=== PATIENT | male | born 1950 | race Caucasian/White ===

== ENCOUNTER 2017-02-09 14:18 | Emergency (ER) | payer OTHER, BC ==
[~2017-02-09] VITALS: Ht 180.3 cm; Wt 89.9 kg
[2017-02-09 14:21] VITALS: TEMP 36.8; Ht 180.3 cm; Wt 89.9 kg
[2017-02-09] MEDS ORDERED: CIPROFLOXACIN 500 MG TAB PO STA (14:37)
[2017-02-09] MEDS ORDERED: DIPHTHERIA/TETANUS/PERTUSSIS 0.5 ML SYR/VIAL IM. ONE (14:45)
[2017-02-09] MEDS ORDERED: CALC500T72 PO (14:55)
[2017-02-09] MEDS ORDERED: MULT-513 PO (14:55)
--- NOTE | 2017-02-09 14:56 | DIAGNOSTIC IMAGING REPORT ---
RIGHT FOOT MIN 3 VIEWS ROUTINE HISTORY: 66 years-old Male Nail x2 puncture wounds plantar midfoot Right COMPARISON: None available TECHNIQUE: 3 views of the right foot FINDINGS: Severe degenerative changes are present within the first MTP joint, most pronounced medially. There is minimal spurring about the plantar calcaneus. There is no acute fracture or dislocation. No radiopaque foreign body is seen along the plantar aspect of the foot. Mild tibiotalar degenerative changes are also noted. IMPRESSION: 1. No acute fracture, dislocation or radiopaque foreign body. 2. Severe degenerative changes of the first MTP joint. The above report was generated using voice recognition software. It may contain grammatical, syntax or spelling errors. Electronically signed by: Loco Hassan M.D. 02/09/2017 2:55 PM Dictated Date/Time: 02/09/2017 2:53 PM
[2017-02-09] MEDS ORDERED: CIPR-255 PO (15:18)
[2017-02-09 15:26] VITALS: BP 133/78; PULSE 65; O2SAT 96
--- NOTE | 2017-02-09 15:51 | EMERGENCY ROOM VISIT NOTE ---
History First contact with patient: 14:33 Chief Complaint: WOUND INFECTION Stated Complaint: PUNCTURE WOUNDS, RIGHT FOOT Nursing Triage Summary: Pt states while working on his daughter's house he stepped on 2 nails. Punctures x 2 to bottom of right foot. Would like tetanus vaccine. History of Present Illness The patient is a 66 year old male who presents to the Emergency Room with complaints of 2 puncture wounds to the bottom of his right foot. The patient reports that he was helping his son-in-law breakdown an outside coal bin. They were boards laying on the ground with the nails protruding from them. The patient lost his balance and stepped on one of the boards with 2 nails in the trading the bottom of his sneaker and into the foot. The patient reports that one of the wounds did bleed extensively, but is now not bleeding. He rates his discomfort a 2 out of 10. The patient presents primarily requesting a tetanus booster as his last booster was in 2007. The patient denies any paresthesias or numbness of the right foot or toes. Review of Systems 10 system review was performed and was negative except for pertinent positives and negatives as indicated in history of present illness Past Medical/Surgical History Medical Problems: (1) Actinic Keratosis (2) Asthma, Unspecified (3) Chronic Hepatitis C W/O Hepatic Coma (4) Melanocytic Nevi Of Trunk Surgical Problems: (1) History of appendectomy Family History FH: heart disease FH: hypertension Social History Smoking Status: Former Smoker Alcohol Use: occasionally Marital Status: Occupation Status: retired Current/Historical Medications Scheduled Calcium Ascorbate (Vitamin C), 500 MG PO DAILY Ciprofloxacin Hcl (Cipro), 500 MG PO BID Multivitamins/Minerals (Mvi With Minerals), 1 TAB PO DAILY Physical Exam Vital Signs Date Time Temp Pulse Resp B/P (MAP) Pulse Ox O2 Delivery O2 Flow Rate FiO2 02/09/17 15:26 65 16 133/78 96 Room Air 02/09/17 14:21 36.8 67 16 135/81 95 Room Air Physical Exam CONSTITUTIONAL: Healthy and well nourished. Alert and oriented X 3 with positive affect. Patient does not appear in any acute distress. HEENT: Normocephalic, atraumatic. Pupils equal, round and reactive. NECK: Full active range of motion without discomfort. MUSCULOSKELETAL: Examination of the right plantar foot shows 2 puncture wounds in the middle portion of the sole. No active bleeding, hematoma formation or obvious cutaneous foreign bodies noted. The patient has no worsening discomfort with subtalar motion. Pedal pulses and capillary refill are intact. INTEGUMENTARY: No rash or other significant dermatologic conditions noted. NEUROLOGIC: Right foot and toes are sensory intact. Medical Decision & Procedures ER Provider Diagnostic Interpretation: My interpretation of right foot x-rays does not show any obvious radiopaque foreign bodies, fractures or dislocations. Severe first MTP osteoarthritis is noted. Radiologist report is as follows: RIGHT FOOT MIN 3 VIEWS ROUTINE HISTORY: 66 years-old Male Nail x2 puncture wounds plantar midfoot Right COMPARISON: None available TECHNIQUE: 3 views of the right foot FINDINGS: Severe degenerative changes are present within the first MTP joint, most pronounced medially. There is minimal spurring about the plantar calcaneus. There is no acute fracture or dislocation. No radiopaque foreign body is seen along the plantar aspect of the foot. Mild tibiotalar degenerative changes are also noted. IMPRESSION: 1. No acute fracture, dislocation or radiopaque foreign body. 2. Severe degenerative changes of the first MTP joint. Medications Administered Medications (Trade) Dose Ordered Sig/Lamar Route Start Time Stop Time Status Last Admin Dose Admin Ciprofloxacin (Cipro Tab) 500 mg NOW STAT PO 02/09/17 14:37 02/09/17 14:39 DC 02/09/17 14:37 500 MG Diphtheria/ Pertussis/Tetanus Vacc (Adacel Inj) 0.5 ml ONCE ONCE IM. 02/09/17 14:45 02/09/17 14:46 DC 02/09/17 14:45 0.5 ML ED Course Patient history and physical exam were performed. Nurse's notes were reviewed. Vital signs were reviewed and normal. The patient refused any analgesics. Adacel was administered IM, along with Cipro 500 mg orally. X-rays of the right foot were normal. Incidental severe osteoarthritis of the first MTP joint is noted. The patient was provided a prescription for Cipro 500 mg twice a day 7 days. He was instructed to watch for any developing infection. Limited weight-bearing until the wound heals. Ibuprofen or Tylenol as needed for additional pain relief. The patient was happy with plan of care, voiced understanding of all discharge instructions, and denied any significant pain upon final exam. The patient was also seen and examined by Dr. Murray, ED attending physician, who agrees with workup and plan of care. Medical Decision Medication Reconcilliation Current Medication List: was personally reviewed by me Blood Pressure Screening Patient's blood pressure: Normal blood pressure Impression Primary Impression: Puncture wound of right foot Additional Impression: Need for tetanus booster Departure Information Prescriptions Ciprofloxacin Hcl (CIPRO) 500 Mg Tab 500 MG PO BID for 7 Days, #14 TAB Prov: Moe Morales PA 02/09/17 Referrals Destin Mark, D.O. (PCP) Patient Instructions My [facility] Problem Qualifiers Primary Impression: Puncture wound of right foot Encounter type: initial encounter Qualified Codes: S91.331A - Puncture wound without foreign body, right foot, initial encounter
--- NOTE | 2017-02-09 17:18 | EMERGENCY ROOM VISIT NOTE ---
ED Visit Note First contact with patient: 14:33 I have personally evaluated this patient examined her and reviewed the pertinent labs and data. I have discussed the case with Octavio Morales, the physician dental assistant teacher and agree with the plan. Please refer to the PA note. This patient comes in as described above. He suffered a puncture wound with 2 nails on his right foot through the right shoe. We have irrigated these wounds. We will cover him with Cipro given the fact that it was a puncture wound through his shoe. He has been updated has tetanus booster. X-rays are unremarkable. He is neurologically and neurovascularly intact. I told the patient's keep a close eye on things. Return if: redness, pus, fever, drainage, any new process concerns. He should follow up with her regular doctor next couple days for recheck.
== END 2017-02-09 15:20 | disposition home or self-care (01) ==
LOC: C.EDB 14:20 → C.EDD 15:20
DX: S91.331A Puncture wound without foreign body, right foot, initial encounter (principal); W45.0XXA Nail entering through skin, initial encounter; Y93.89 Activity, other specified; Y92.89 Other specified places as the place of occurrence of the external cause; Z23 Encounter for immunization; M19.071 Primary osteoarthritis, right ankle and foot; L57.0 Actinic keratosis; J45.909 Unspecified asthma, uncomplicated; B18.2 Chronic viral hepatitis C; Z82.49 Family history of ischemic heart disease and other diseases of the circulatory system; Z87.891 Personal history of nicotine dependence; Z79.899 Other long term (current) drug therapy

== ENCOUNTER 2017-07-27 09:59 | Emergency (ER) | payer OTHER, BC ==
[~2017-07-27] VITALS: Ht 180.3 cm; Wt 89.0 kg
[~2017-07-27 09:59] MED LIST: CALC500T72 PO; MULT-513 PO
[2017-07-27 10:07] VITALS: TEMP 36.9; Ht 180.3 cm; Wt 89.0 kg
[2017-07-27] MEDS ORDERED: ONDANSETRON INJ 2 MG/ML 2 ML VIAL IV STA (10:28)
[2017-07-27] MEDS ORDERED: KETOROLAC TROMETHAMINE 30 MG/ML VIAL IV STA (10:28)
[2017-07-27] MEDS ORDERED: ACETAMINOPHEN 500 MG TAB PO STA (10:28)
--- NOTE | 2017-07-27 10:33 | EMERGENCY ROOM VISIT NOTE ---
History Report prepared by Martin: Anthony Cavazos Under the Supervision of: Dr. Marcelino Ferrell M.D. First contact with patient: 10:15 Chief Complaint: OTHER COMPLAINT Stated Complaint: POSSIBLE POST SURGERY BLOOD CLOT History of Present Illness The patient is a 66 year old white male with a past medical history of a prostatectomy two weeks ago due to prostate cancer, asthma, appendectomy, kidney stones, and cured Hep C who presents to the ED with a cc of worsening left flank pain beginning a few days ago which he describes as an ache. Positive pain in his testicles when needing to urinate . Negative falls, abdominal pain, calf pain, calf swelling, chest pain, shortness of breath, history of blood clots, tobacco use, numbness, tingling, bowel incontinence. He is not going through chemotherapy or radiation therapy. He is worried about blood clots and his cancer spreading. He was on Lovenox a week after his surgery , and he took oxycodone last night for the pain, and it did not help. He occasionally drinks alcohol. Source of History: patient Onset: a few days ago Quality: ache Timing: worsening Associated Symptoms: No chest pain, No SOB, No abdominal pain Review of Systems See HPI for pertinent positives and negatives. A total of ten systems were reviewed and were otherwise negative. Past Medical & Surgical Medical Problems: (1) Actinic Keratosis (2) Asthma, Unspecified (3) Chronic Hepatitis C W/O Hepatic Coma (4) Melanocytic Nevi Of Trunk Surgical Problems: (1) History of appendectomy Family History FH: heart disease FH: hypertension Social History Smoking Status: Former Smoker Alcohol Use: occasionally Marital Status: Occupation Status: retired Current/Historical Medications Scheduled Calcium Ascorbate (Vitamin C), 500 MG PO DAILY Melatonin (Kp Melatonin), 1 TAB PO HS Multivitamins/Minerals (Mvi With Minerals), 1 TAB PO DAILY Scheduled PRN Oxycodone Ir (Roxicodone Ir), 5 MG PO Q4H PRN for Severe Pain Allergies Uncoded Allergies: PCN (Allergy, Unknown, 08/18/02) Physical Exam Vital Signs Date Time Temp Pulse Resp B/P (MAP) Pulse Ox O2 Delivery O2 Flow Rate FiO2 07/27/17 13:26 69 16 130/80 95 07/27/17 10:07 36.9 82 18 144/77 97 Room Air Physical Exam GENERAL: Awake, alert, well-appearing, NAD HENT: Normocephalic, atraumatic. EYES: Normal conjunctiva. Sclera non-icteric. NECK: Supple. No nuchal rigidity. FROM. RESPIRATORY: CTAB, no rhonchi, wheezing, crackles CARDIAC: RRR, no MRG ABDOMEN: Soft, NTND, BS+, Horizontal incisional scar superior to the umbilicus CDI no erythema. MSK: No chest wall TTP, no LE edema or calf pain NEURO: CN 2-12 intact, 5/5 upper and lower extremity strength, no dysmetria, no drift, good finger to nose, no sensory deficits. No saddle anesthesia SKIN: No rash or jaundice noted. Medical Decision & Procedures ER Provider Diagnostic Interpretation: Radiology results as stated below per my review and radiologist interpretation: ULTRASOUND TESTES AND SCROTUM CLINICAL HISTORY: Left groin pain. COMPARISON STUDY: No priors. TECHNIQUE: Real-time, grayscale, and color Doppler sonography of the testes and scrotum is performed. Images are reviewed in the transverse and longitudinal planes. FINDINGS: The testes are normal in size and homogeneous in echotexture. The right testis measures 4.2 x 2.3 x 2.4 cm and the left testis measures 3.5 x 2.1 x 2.9 cm. No intratesticular mass is seen. Testicular blood flow is normal and symmetric. Normal Doppler waveforms are identified in both testes. The epididymal heads are normal in appearance. The right epididymal head measures 1.0 cm in length and the left epididymal head measures 0.8 cm in length. No varicocele is seen. There are small bilateral hydroceles. IMPRESSION: 1. Unremarkable sonographic appearance of the testes. 2. Small bilateral hydroceles. Electronically signed by: Nate Carrero M.D. 07/27/2017 12:35 PM Dictated Date/Time: 07/27/2017 12:33 PM LEFT LOWER EXTREMITY VENOUS DOPPLER CLINICAL HISTORY: s/p prostatectomy, groin pain COMPARISON STUDY: No previous studies for comparison. TECHNIQUE: Sonography of the deep venous system of the left lower extremity was performed. Compression and augmentation were evaluated. FINDINGS: The left common femoral, superficial femoral and popliteal veins were compressible. Augmentation was normal. Flow was shown within the deep calf vessels. IMPRESSION: No evidence of deep venous thrombus within the left lower extremity. Electronically signed by: Krishna Riddle M.D. 07/27/2017 12:30 PM Dictated Date/Time: 07/27/2017 12:30 PM Laboratory Results 07/27/17 11:00 Red Blood Count 4.09, Mean Corpuscular Volume 94.1, Mean Corpuscular Hemoglobin 32.8, Mean Corpuscular Hemoglobin Concent 34.8, Mean Platelet Volume 9.7, Neutrophils (%) (Auto) 70.5, Lymphocytes (%) (Auto) 18.5, Monocytes (%) (Auto) 5.3, Eosinophils (%) (Auto) 5.3, Basophils (%) (Auto) 0.4, Neutrophils # (Auto) 4.77, Lymphocytes # (Auto) 1.25, Monocytes # (Auto) 0.36, Eosinophils # (Auto) 0.36, Basophils # (Auto) 0.03 07/27/17 11:00 Test 07/27/17 10:55 07/27/17 11:00 Urine Color YELLOW Urine Appearance CLEAR (CLEAR) Urine pH 7.0 (4.5-7.5) Urine Specific [place] 1.011 (1.000-1.030) Urine Protein NEG (NEG) Urine Glucose (UA) NEG (NEG) Urine Ketones NEG (NEG) Urine Occult Blood NEG (NEG) Urine Nitrite NEG (NEG) Urine Bilirubin NEG (NEG) Urine Urobilinogen NEG (NEG) Urine Leukocyte Esterase TRACE (NEG) Urine WBC (Auto) 1-5 /hpf (0-5) Urine RBC (Auto) 0-4 /hpf (0-4) Urine Hyaline Casts (Auto) 0 /lpf (0-5) Urine Epithelial Cells (Auto) 0-5 /lpf (0-5) Urine Bacteria (Auto) NEG (NEG) White Blood Count 6.77 K/uL (4.8-10.8) Red Blood Count 4.09 M/uL (4.7-6.1) Hemoglobin 13.4 g/dL (14.0-18.0) Hematocrit 38.5 % (42-52) Mean Corpuscular Volume 94.1 fL (80-100) Mean Corpuscular Hemoglobin 32.8 pg (25-34) Mean Corpuscular Hemoglobin Concent 34.8 g/dl (32-36) Platelet Count 250 K/uL (130-400) Mean Platelet Volume 9.7 fL (7.4-10.4) Neutrophils (%) (Auto) 70.5 % Lymphocytes (%) (Auto) 18.5 % Monocytes (%) (Auto) 5.3 % Eosinophils (%) (Auto) 5.3 % Basophils (%) (Auto) 0.4 % Neutrophils # (Auto) 4.77 K/uL (1.4-6.5) Lymphocytes # (Auto) 1.25 K/uL (1.2-3.4) Monocytes # (Auto) 0.36 K/uL (0.11-0.59) Eosinophils # (Auto) 0.36 K/uL (0-0.5) Basophils # (Auto) 0.03 K/uL (0-0.2) RDW Standard Deviation 47.5 fL (36.4-46.3) RDW Coefficient of Variation 13.8 % (11.5-14.5) Immature Granulocyte % (Auto) 0.0 % Immature Granulocyte # (Auto) 0.00 K/uL (0.00-0.02) Anion Gap 6.0 mmol/L (3-11) Est Creatinine Clear Calc Drug Dose 92.9 ml/min Estimated GFR () 105.8 Estimated GFR (Non- 91.3 BUN/Creatinine Ratio 16.0 (10-20) Calcium Level 9.8 mg/dl (8.5-10.1) Total Bilirubin 0.7 mg/dl (0.2-1) Direct Bilirubin 0.2 mg/dl (0-0.2) Aspartate Amino Transf (AST/SGOT) 15 U/L (15-37) Alanine Aminotransferase (ALT/SGPT) 18 U/L (12-78) Alkaline Phosphatase 48 U/L (45-117) Total Protein 6.8 gm/dl (6.4-8.2) Albumin 3.6 gm/dl (3.4-5.0) Lipase 139 U/L (73-393) Laboratory results reviewed by me ED Course 1015: The patient was evaluated in room C6. A complete history and physical exam was performed. 1228: I reevaluated the patient, and he has no pain and is back from ultrasound 1301: I reevaluated the patient. Discussed results and discharge instructions: He verbalized understanding and agreement. The patient is ready for discharge. 1330: I discussed the patient's case with Dr. Fang - [facility] , and she is going to evaluate the patient as an outpatient. Medical Decision The patient is a 66 year old white male with a past medical history of a prostatectomy two weeks ago due to prostate cancer, asthma, appendectomy, kidney stones, and cured Hep C who presents to the ED with a cc of worsening left flank pain beginning a few days ago which he describes as an ache. Differential diagnosis: Etiologies such as renal colic, appendicitis, diverticulitis, mesenteric ischemia, aortic pathology, infections, inflammatory bowel disease, PUD, biliary pathology, UTI, as well as others were entertained. Patient was seen and evaluated the bedside. Patient is a 66-year-old with a prior history of hep C and prostate cancer status post prostatectomy 2 weeks prior to [facility]. Patient did complain of some left lower extremity discomfort and groin pain. Patient states that he call the on-call urologist who referred him here to rule out blood clot. Patient did take one weeks worth of Lovenox after the procedure. The patient has no lower extremity swelling no deficits. Patient is very well-appearing patient denies any chest pains or shortness of breath. Patient did have blood work completed along with an ultrasound of the testicles and scrotum as well as the left lower extremity. The patient's blood counts are fairly normal. The patient had no recurrence of his discomfort. The patient's left lower extremity ultrasound was negative for acute DVT. The patient's testicular ultrasound did show bilateral hydroceles but no other problems. Urinalysis negative for infection. We did discuss that there is a possibility of very high blood clot in the pelvis however this less likely given the patient's exam is this is more likely related to some muscular skeletal pain as the patient was complaining more some posterior buttock type pain. No lower extremity deficits. Patient has soft compartments and I do not believe he is infected. Patient was given strict follow-up and return precautions and warning signs for which to return to the emergency department. The patient was agreeable with this plan of care. Patient was given strict follow-up, discharge, and return precautions. All questions were answered. Patient was deemed suitable for outpatient follow-up at this time. Patient agreed with the plan of care and was safely discharged home. Medication Reconcilliation Current Medication List: was personally reviewed by me Blood Pressure Screening Patient's blood pressure: Elevated blood pressure Blood pressure disposition: Elevated BP felt to be situational Consults Time Called: 1305 Consulting Physician: Dr. [facility] Returned Call: 1330 I discussed the patient's case with Dr. [facility], and she is going to evaluate the patient as an outpatient. Impression Primary Impression: Buttock pain Additional Impression: Anemia Scribe Attestation The scribe's documentation has been prepared under my direction and personally reviewed by me in its entirety. I confirm that the note above accurately reflects all work, treatment, procedures, and medical decision making performed by me. Departure Information Dispostion Home / Self-Care Referrals Destin Mark D.O. (PCP) Forms HOME CARE DOCUMENTATION FORM, IMPORTANT VISIT INFORMATION, WORK / SCHOOL INSTRUCTIONS Patient Instructions ED Muscle Aching, ED Spasm Muscle, My [facility] Additional Instructions Please return to the emergency department if you have worsening or recurrent symptoms not amenable to at-home treatment. Please call for a follow-up appointment with her primary care physician. Please take your medications as prescribed. If you have other concerns and/or complaints please feel free to also call your primary care physician's office or return the ED for further evaluation, management, and treatment. You may take 400 mg Ibuprofen every 8-12 hours as needed for pain with food for no more than 2 consecutive days. You may take tylenol 650 mg every 6 hours as needed for pain. You may take motrin and tylenol separately or at the same time. Take your medications as prescribed. If taking an antibiotic consider taking a probiotic and/or eating yogurt, but at the least, please take with food as it can cause upset stomach. If culture results are not available at discharge, if they are positive for concern of infection, you will be informed of the results as soon as they are available. If you were seen between 11pm and 7AM all radiology reads will be re-read by our in house staff. If any major discrepancies are discovered, you will be notified. You have been examined and treated today on an emergency basis only. This is not a substitute for, or an effort to provide, complete comprehensive medical care. It is impossible to recognize and treat all injuries or illnesses in a single emergency department visit. It is therefore important that you follow up closely with [facility], your PCP, and/or your specialist(s). Call as soon as possible for an appointment. Thank you for your time and consideration. I look forward to speaking with you again soon. Please don't hesitate to call us if you have any questions. Problem Qualifiers Additional Impression: Anemia Anemia type: unspecified type Qualified Codes: D64.9 - Anemia, unspecified
[2017-07-27] MEDS ORDERED: OXYC1TAB3 PO (10:40)
[2017-07-27] MEDS ORDERED: MELA1TAB5 PO (10:40)
[2017-07-27 11:30] LABS: BASO % 0.4 %; BASO ABS # 0.03 K/uL (0-0.2); EOS % 5.3 %; EOS ABS # 0.36 K/uL (0-0.5); HEMATOCRIT 38.5 % (42-52); HEMOGLOBIN 13.4 g/dL (14.0-18.0); LYMPH % 18.5 %; LYMPH ABS # 1.25 K/uL (1.2-3.4); MEAN CELL VOLUME 94.1 fL (80-100); MEAN CORPUSCULAR HEMOGLOBIN 32.8 pg (25-34); MEAN CORPUSCULAR HGB CONC 34.8 g/dl (32-36); MEAN PLATELET VOLUME 9.7 fL (7.4-10.4); MONO % 5.3 %; MONO ABS # 0.36 K/uL (0.11-0.59); NEUT % 70.5 %; NEUT ABS # 4.77 K/uL (1.4-6.5); PLATELET COUNT 250 K/uL (130-400); RED CELL DISTRIBUTION WIDTH CV 13.8 % (11.5-14.5); RED CELL DISTRIBUTION WIDTH SD 47.5 fL (36.4-46.3); WHITE BLOOD COUNT 6.77 K/uL (4.8-10.8)
[2017-07-27 11:51] LABS: ALBUMIN 3.6 gm/dl (3.4-5.0); CALCIUM 9.8 mg/dl (8.5-10.1); CREATININE 0.81 mg/dl (0.60-1.40); POTASSIUM 4.3 mmol/L (3.5-5.1)
[2017-07-27 11:54] LABS: TOTAL PROTEIN 6.8 gm/dl (6.4-8.2)
--- NOTE | 2017-07-27 12:31 | DIAGNOSTIC IMAGING REPORT ---
LEFT LOWER EXTREMITY VENOUS DOPPLER CLINICAL HISTORY: s/p prostatectomy, groin pain COMPARISON STUDY: No previous studies for comparison. TECHNIQUE: Sonography of the deep venous system of the left lower extremity was performed. Compression and augmentation were evaluated. FINDINGS: The left common femoral, superficial femoral and popliteal veins were compressible. Augmentation was normal. Flow was shown within the deep calf vessels. IMPRESSION: No evidence of deep venous thrombus within the left lower extremity. Electronically signed by: Krishna Riddle M.D. 07/27/2017 12:30 PM Dictated Date/Time: 07/27/2017 12:30 PM
--- NOTE | 2017-07-27 12:37 | DIAGNOSTIC IMAGING REPORT ---
ULTRASOUND TESTES AND SCROTUM CLINICAL HISTORY: Left groin pain. COMPARISON STUDY: No priors. TECHNIQUE: Real-time, grayscale, and color Doppler sonography of the testes and scrotum is performed. Images are reviewed in the transverse and longitudinal planes. FINDINGS: The testes are normal in size and homogeneous in echotexture. The right testis measures 4.2 x 2.3 x 2.4 cm and the left testis measures 3.5 x 2.1 x 2.9 cm. No intratesticular mass is seen. Testicular blood flow is normal and symmetric. Normal Doppler waveforms are identified in both testes. The epididymal heads are normal in appearance. The right epididymal head measures 1.0 cm in length and the left epididymal head measures 0.8 cm in length. No varicocele is seen. There are small bilateral hydroceles. IMPRESSION: 1. Unremarkable sonographic appearance of the testes. 2. Small bilateral hydroceles. Electronically signed by: Nate Carrero M.D. 07/27/2017 12:35 PM Dictated Date/Time: 07/27/2017 12:33 PM
[2017-07-27 13:26] VITALS: BP 130/80; PULSE 69; O2SAT 95
== END 2017-07-27 13:27 | disposition home or self-care (01) ==
LOC: C.EDB 10:03 → C.EDC 13:27
DX: M79.1 Myalgia (principal); D64.9 Anemia, unspecified; C61 Malignant neoplasm of prostate; Z90.79 Acquired absence of other genital organ(s); J45.909 Unspecified asthma, uncomplicated; B18.2 Chronic viral hepatitis C; Z87.442 Personal history of urinary calculi; Z87.891 Personal history of nicotine dependence; Z82.49 Family history of ischemic heart disease and other diseases of the circulatory system; N43.3 Hydrocele, unspecified